=== PATIENT | female | born 1975 | race African-American/Black ===

== ENCOUNTER 2020-01-13 13:51 | Emergency (ER) | payer OTHER ==
[~2020-01-13] VITALS: Ht 152.4 cm; Wt 70.8 kg
[~2020-01-13 13:51] MED LIST: NORCO 5-325 TA1 EACH PO; [UNRECOGNIZED DRUG - REMARK]
[2020-01-13 14:27] LABS: URINE BILIRUBIN NEGATIVE (Negative); URINE BLOOD NEGATIVE (Negative); URINE CLARITY CLEAR; URINE COLOR YELLOW; URINE GLUCOSE-RANDOM* NEGATIVE (Negative); URINE KETONES TRACE (Negative); URINE LEUKOCYTES-REFLEX TRACE (Negative); URINE NITRITE-REFLEX NEGATIVE (Negative); URINE PROTEIN (DIPSTICK) 1+ (Negative); URINE SPECIFIC GRAVITY 1.025 (1.005-1.035); URINE UROBILINOGEN 0.2 E.U./dl (0.2-1.0)
[2020-01-13 14:28] LABS: ABSOLUTE NEUTROPHILS 5.6 thou/uL (1.4-8.2); BASOPHILS 0.2 % (0.0-2.0); EOSINOPHILS 0.8 % (0.0-3.0); HEMATOCRIT 39.3 % (37.0-47.0); LYMPHOCYTES 34.9 % (24.0-44.0); MCH 27.9 pg (26.0-34.0); MCHC 33.2 g/dL (28.0-37.0); MCV 84.2 fL (80.0-100.0); MONOCYTES 8.6 % (1.0-8.0); PLATELET COUNT 385 thou/uL (150-400); POLYS 55.5 % (36.0-66.0); RBC 4.67 mil/uL (4.20-5.00); RDW 13.1 % (10.5-14.5); WBC 10.1 thou/uL (4.0-11.0)
[2020-01-13 14:38] LABS: MUCUS 0-3 Light strn/LPF (None Seen); SQUAMOUS >10 Many /LPF (0-3)
[2020-01-13 14:39] LABS: BACTERIA-REFLEX None Seen /HPF (None Seen); CRYSTALS None Seen /LPF (None Seen); FINE GRANULAR CASTS 0-3 Few /LPF (None Seen); URINE RBC 0-2 Rare /HPF (0-2); URINE WBC-REFLEX 0-5 Rare /HPF (0-5)
[2020-01-13 14:41] LABS: ANION GAP 15 mmol/L (7-16); BUN 13 mg/dL (7-18); CALCIUM 9.1 mg/dL (8.5-10.1); CHLORIDE 99 mmol/L (98-107); CO2 22 mmol/L (21-32); CREATININE 0.9 mg/dL (0.6-1.0); GLUCOSE 132 mg/dL (74-106); POTASSIUM 3.1 mmol/L (3.5-5.1); SODIUM 136 mmol/L (136-145)
[2020-01-13 14:51] LABS: ALBUMIN 3.5 g/dL (3.4-5.0); SGOT 20 U/L (15-37); SGPT 25 U/L (30-65); TOTAL BILIRUBIN 0.4 mg/dL (0.2-1.0); TOTAL PROTEIN 7.8 g/dL (6.4-8.2); TROPONIN-I <0.06 ng/mL (<0.06)
[2020-01-13] MEDS ORDERED: ATIVAN0.5 M1 PO (15:20)
[2020-01-13 15:42] VITALS: BP 122/68
--- NOTE | 2020-01-14 11:01 | EKG ---
[facility] [place] [address] ELECTROCARDIOGRAM REPORT Name: MALKA SELBY Ruth Room #: [facility]#: [id number] Admission: 01/13/20 Attend Phys: Discharge: 01/13/20 Date of : 73 Report #: [id number] THIS REPORT FOR: cc: PRIYA - [place] family physician/PCP FAM - No family physician/PCP Fam Metcalf MD ~ THIS REPORT FOR: //name// 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
== END 2020-01-13 15:43 | disposition home or self-care (01) ==
LOC: ER 13:51
PROVIDERS: Physician Assistant
DX: F41.0 Panic disorder [episodic paroxysmal anxiety] (principal); R06.02 Shortness of breath; R06.4 Hyperventilation; F17.210 Nicotine dependence, cigarettes, uncomplicated; R42 Dizziness and giddiness; Z79.899 Other long term (current) drug therapy